=== PATIENT | female | born 1960 | race Caucasian/White ===

== ENCOUNTER → 2024-01-25 14:20 | Outpatient (REF) | payer OTHER, SELFPAY | LOC: WDC 14:20 | PROVIDERS: ATTENDING PHYSICIAN Physician Assistant Surgical; FAMILY PHYSICIAN Hospitalist | DX: Z12.31 Encounter for screening mammogram for malignant neoplasm of breast (principal) | CPT/HCPCS: 77063; 77067 ==

== ENCOUNTER 2025-03-12 23:36 | Emergency (ER) | payer OTHER, SELFPAY ==
[2025-03-12 23:40] VITALS: BP 137/86
[2025-03-12 23:41] VITALS: BP 137/86
[2025-03-12 23:45] VITALS: BMI 28.1
--- NOTE | 2025-03-13 03:11 | ED.GENMED ---
History of Present Illness
General
Chief Complaint: Fall
Source: patient and spouse
Time Seen by Provider: 03/13/25 02:46
History of Present Illness
History of Present Illness:
Note:
CHIEF COMPLAINT(S)
Fall resulting in facial injury and rib pain.
HISTORY OF PRESENT ILLNESS
The patient is a 64-year-old female who presented after experiencing a fall at a restaurant. She reports that she does not remember the fall itself and only recalls being in the emergency department. Per the accompanying family member, the fall was
likely mechanical, attributed to tripping over a rug after having consumed a few drinks. The patient acknowledges consuming alcohol prior to the incident. She denies loss of consciousness that she can recall. Currently, the patient reports facial
pain and rib discomfort, particularly on the left side where there is evident bruising and abrasions. She also described some minor pain in the hand. On examination, there is left forehead abrasion with surrounding soft tissue swelling and bruising.
There is tenderness over the left ribs, but no pain upon examination of the spine, abdomen, or lower extremities.
PAST MEDICAL AND SURGICAL HISTORY
- The patient is currently taking medication for hypertension but was reported not to be on anticoagulants.
SOCIAL DETERMINANTS AFFECTING HEALTH
The patient consumed alcohol prior to the fall, which may have contributed to the incident. There is no mention of any other social determinants affecting health.
REVIEW OF SYSTEMS
- Head and Neck: Bruising and abrasion above the left eyebrow, tenderness on left ribs without significant spinal tenderness.
- Musculoskeletal: No significant abnormalities except as mentioned regarding facial and rib pain.
- Neurological: No loss of consciousness reported.
- Integumentary: Notable abrasion and swelling on the forehead.
PHYSICAL EXAM
General: Alert, no acute distress.
Skin: Warm, dry.
Head: Abrasion on the left forehead, periorbital swelling noted.
Neck: Supple, trachea midline.
Eyes, Ears, Nose, Mouth, and Throat: Oral mucosa moist, left periorbital ecchymosis.
Cardiovascular: Normal peripheral perfusion, no edema.
Respiratory: Respirations are non-labored, tenderness over the left rib area.
Gastrointestinal: Abdomen nondistended, no tenderness.
Back: Normal range of motion, normal alignment.
Musculoskeletal: Normal range of motion, normal strength, no tenderness over spine.
Neurological: Alert and oriented to person, place, time, and situation.
Psychiatric: Cooperative, appropriate mood, and affect.
PROBLEM LIST
Acute Problems:
- Left forehead abrasion and bruising
- Rib pain secondary to trauma
PLAN
1. Order chest and rib X-rays to assess for any fractures.
2. Administer ibuprofen as needed for pain relief.
3. Clean the facial wound and apply antibiotic ointment, followed by Vaseline to maintain moisture and promote healing.
4. Advise the patient to apply ice to the affected areas to reduce swelling.
5. Educate the patient regarding the potential for increased bruising and discoloration due to gravitational movement of hematoma.
6. Discuss the importance of sunscreen on healing skin to prevent pigmentation changes.
7. Tetanus vaccination update if necessary, as the last booster was reported to be several years ago.
DIFFERENTIAL DIAGNOSIS
The Differential Diagnosis includes, in no particular order and is not limited to:
1. Alcohol-induced fall
2. Mechanical fall due to tripping
3. Hypotension-related fall
4. Arrhythmia-induced syncope
5. Neurological event causing fall
6. Dizziness or vertigo contributing to fall
7. Visual impairment or obstruction causing fall
8. Medication side effect leading to decreased coordination
9. Dehydration-related syncope
10. Orthostatic hypotension-induced fall
Disposition:
SUMMARY OF ENCOUNTER
The patient is a 64-year-old female who presented to the emergency department following a fall at a restaurant after consuming alcohol. She sustained facial and rib injuries, including a left forehead abrasion with surrounding swelling and bruising,
and tenderness over the left ribs. CT of the head revealed no intracranial hemorrhage, and CT of the cervical-thoracic spine showed no fractures. Rib imaging through chest X-ray did not indicate pneumothorax or rib fractures. The patient was found
to be stable for outpatient management.
ASSESSMENT
1. Fall resulting in facial injury and rib pain, likely alcohol-induced.
2. Forehead abrasion and contusion.
PLAN
1. Provide local wound care for facial abrasion with cleaning, application of antibiotic ointment, and Vaseline for moisture retention.
2. Recommend ice application to reduce swelling.
3. Prescribe ibuprofen as needed for pain management.
4. Advise rest and avoidance of alcohol until fully recovered.
5. Schedule outpatient follow-up to monitor healing and evaluate any further needs.
PATIENT EDUCATION AND COUNSELING
The patient was informed about the importance of ice application, wound care, and rest in promoting healing. The potential impact of alcohol consumption on coordination and increased fall risk was discussed. She was advised on sunscreen application
on healing skin to prevent pigment changes.
FOLLOW-UP INSTRUCTIONS
Please call the office immediately to schedule a follow-up visit to ensure proper healing.
MEDICATION RECONCILIATION
1. Ibuprofen for pain relief, administered as needed.
MEDICAL DECISION MAKING
-Complexity of Data Reviewed: Chronic conditions affecting care include hypertension. Differential diagnosis includes: alcohol-induced fall, mechanical fall due to tripping, hypotension-related fall, arrhythmia-induced syncope, neurological event
causing fall, dizziness or vertigo contributing to fall, visual impairment or obstruction causing fall, medication side effect leading to decreased coordination, dehydration-related syncope, orthostatic hypotension-induced fall.
-Data:
Category 1
CT of the head revealed no intracranial hemorrhage. CT of the cervical-thoracic spine showed no fractures. Rib imaging through chest X-ray showed no pneumothorax or rib fractures.
-Risk:
Consideration of Admission/Observation: Escalation of care including admission/observation was considered given the complexity and risk of the patients presenting complaint, exam findings, and/or their underlying comorbidities. However, ultimately I
feel the patient is safe for outpatient management with close follow-up. Reasoning: Work-up reassuring, does not reveal any acute life/organ-threatening processes, patients symptoms well controlled upon reevaluation, reexamination is reassuring,
vitals are stable, patient agreeable with discharge, reliable for follow-up.
Care significantly affected by social determinants of health: Alcohol consumption prior to the fall contributing to decreased coordination and risk of fall.
DIAGNOSIS
1. Contusion of face, initial encounter - S00.83XA
2. Pain in rib(s), initial encounter - R07.82
Phy Exam
Physical Exam
Physical Exam:
.
Sepsis
Sepsis Screening
Sepsis Assessment: Sepsis Ruled Out
Sepsis Screen
Sepsis Screen: Sepsis Ruled Out
Date: 03/13/25
Time: 03:50
Course
Orders/Labs/Results
Orders:
Orders
03/13/25 02:24
CT Head W/o Iv Contrast Urgent
Comment:
Reason For Exam: Fall, hematoma
03/13/25 02:27
Cervical Spine wo Contrast CT [CT Cervical Spine W/o Iv Contr] Urgent
Comment:
Reason For Exam: fall
03/13/25 03:07
Ibuprofen [Motrin] 600 mg PO NOW STA
Tetanus/Diphth/Acelpertussis [Adacel] 0.5 ml IM .ONCE ONE
Ribs, Left 3 View W/PA Chest CR [CR Ribs-left 3 Vw W/pa Chest] Urgent
Comment:
Reason For Exam: fall
Vital Signs
Initial and Last Documented VS:
Initial Vital Signs
BP
137/86
03/12/25 23:40
Last Documented Vital Signs
Temp Pulse Resp BP Pulse Ox
97.7 F 78 16 137/86 96
03/12/25 23:41 03/12/25 23:41 03/12/25 23:41 03/12/25 23:41 03/13/25 03:12
*Pulse Oximetry
SaO2: 96
Oxygen Mode of Delivery: Room air
Patient hypoxic: no
*Critical Care Note
Total Time (30-74mins, 75-104mins- exclusive of procedures): Not Applicable
ED Attending Note
-
Portions of this chart may have been created with voice recognition software.� Occasional wrong word or��sound alike� substitutions may have occurred due to the inherent limitations of voice recognition software.
Discharge Plan
Departure
Patient Disposition: Home (Routine Discharge)
Date of Disposition: 03/13/25
Time of Disposition: 03:48
Patient with high blood pressure during this ER visit?: No
Discharge Problem:
Head injury, Abrasion, Rib injury
Instructions: Head Injury in Adults (DC), Rib fracture or bruised rib - ED (DC)
Referrals:
Nilsa Rios MD [Family Provider, Internal Medicine]
Activity Restrictions/Additional Instructions:
Please ice your injuries. Use ibuprofen for pain control. Keep wound clean and dry and use Vaseline to keep the lesions moist. Return immediately for changes in mentation, vomiting, weakness of any kind or any other concerns.
Interventions
Interventions:
*Risk Screen - Suicide Last Done: 03/12/25 23:49
*General Assessment Last Done: 03/12/25 23:47
*Neglect/Abuse Screening Last Done: 03/12/25 23:49
*ED COVID-19 Vaccine History Last Done: 03/12/25 23:47
*ED Influenza Vaccine History Last Done: 03/12/25 23:47
[facility] Risk Assessment Tool Last Done: 03/12/25 23:46
ED-Musculoskeletal Assessment Last Done: 03/12/25 23:52
ED- Neurological Assessment Last Done: 03/12/25 23:53
ED-Skin Assessment Last Done: 03/12/25 23:51
Discharge Date and Time
Print Language: [email or web address]
[2025-03-13] MEDS: MOTRIN 600 MG PO (03:40)
[2025-03-13] MEDS: ADACEL 0.5 ML IM (03:42)
== END 2025-03-13 04:33 | disposition home or self-care (01) ==
LOC: EMR 23:36
PROVIDERS: EMERGENCY PHYSICIAN Emergency Medicine; FAMILY PHYSICIAN Hospitalist
DX: S09.90XA Unspecified injury of head, initial encounter (principal); S00.81XA Abrasion of other part of head, initial encounter; S29.9XXA Unspecified injury of thorax, initial encounter; W18.09XA Striking against other object with subsequent fall, initial encounter; Y93.01 Activity, walking, marching and hiking; Y92.511 Restaurant or cafe as the place of occurrence of the external cause; I10 Essential (primary) hypertension; Z23 Encounter for immunization
CPT/HCPCS: 99284; 90471; 70450; 71101; 72125; 90715